=== PATIENT | male | born 1980 | race Caucasian/White ===

== ENCOUNTER → 2016-07-18 | Outpatient (CLI) | payer OTHER ==
[2016-07-18 10:55] LABS: ALT 52 U/L (21-72); AST 27 U/L (17-59); Alkaline Phosphatase 83 U/L (38-126); Anion Gap 12 mmol/L; Blood Urea Nitrogen 21 mg/dL (9-20); Calcium 9.7 mg/dL (8.4-10.2); Carbon Dioxide 27 mmol/L (22-30); Chloride 103 mmol/L (98-107); Cholesterol 220 mg/dL (<200); Glucose 208 mg/dL (74-99); HDL Cholesterol 46 mg/dL (40-60); Non-African American GFR(MDRD) >60 (>60 ml/min/1.73 sqM); Potassium 4.8 mmol/L (3.5-5.1); Sodium 142 mmol/L (137-145); Total Bilirubin 0.6 mg/dL (0.2-1.3); Total Protein 7.7 g/dL (6.3-8.2); Triglycerides 148 mg/dL (<150)
== END | disposition home or self-care (01) ==
LOC: LABWHC1 09:52
PROVIDERS: ATTEND Internal Medicine Endocrinology, Diabetes & Metabolism
DX: E11.65 Type 2 diabetes mellitus with hyperglycemia (principal)
CPT/HCPCS: 36415; 80053; 80061; 82043; 84443

== ENCOUNTER → 2016-10-21 | Outpatient (CLI) | payer OTHER ==
[2016-10-21 10:24] LABS: ALT 44 U/L (21-72); AST 20 U/L (17-59); Alkaline Phosphatase 82 U/L (38-126); Anion Gap 12 mmol/L; Blood Urea Nitrogen 16 mg/dL (9-20); Calcium 9.4 mg/dL (8.4-10.2); Carbon Dioxide 23 mmol/L (22-30); Chloride 107 mmol/L (98-107); Glucose 199 mg/dL (74-99); Non-African American GFR(MDRD) >60 (>60 ml/min/1.73 sqM); Potassium 4.5 mmol/L (3.5-5.1); Sodium 142 mmol/L (137-145); Total Bilirubin 0.4 mg/dL (0.2-1.3); Total Protein 7.2 g/dL (6.3-8.2)
== END | disposition home or self-care (01) ==
LOC: LABWHC1 09:45
PROVIDERS: ATTEND Internal Medicine Endocrinology, Diabetes & Metabolism
DX: E11.65 Type 2 diabetes mellitus with hyperglycemia (principal)
CPT/HCPCS: 36415; 80053; 84681

== ENCOUNTER → 2020-05-27 | Outpatient (CLI) | payer BC ==
[2020-05-27 10:55] LABS: ALT 23 U/L (4-49); AST 25 U/L (17-59); African American GFR (CKD) >90 (>60 ml/min/1.73 sqM); Albumin 4.3 g/dL (3.5-5.0); Albumin/Globulin Ratio 1.6; Alkaline Phosphatase 74 U/L (38-126); Anion Gap 6 mmol/L; Blood Urea Nitrogen 20 mg/dL (9-20); Calcium 9.4 mg/dL (8.4-10.2); Carbon Dioxide 31 mmol/L (22-30); Chloride 102 mmol/L (98-107); Cholesterol 207 mg/dL (<200); Globulin 2.7 g/dL; Glucose 194 mg/dL (74-99); HDL Cholesterol 50 mg/dL (40-60); LDL Cholesterol,Calculated 139 mg/dL (0-99); Non-African American GFR(CKD) >90 (>60 ml/min/1.73 sqM); Potassium 4.3 mmol/L (3.5-5.1); Sodium 139 mmol/L (137-145); Total Bilirubin 0.6 mg/dL (0.2-1.3); Triglycerides 88 mg/dL (<150)
[2020-05-27 21:38] LABS: Hemoglobin A1C 7.7 % (4.0-6.0)
[2020-05-28 05:37] LABS: Urine Creatinine 203.8 mg/dL
== END | disposition home or self-care (01) ==
LOC: LABWHC1 09:42
PROVIDERS: ATTEND Internal Medicine Endocrinology, Diabetes & Metabolism
DX: E10.65 Type 1 diabetes mellitus with hyperglycemia (principal)
CPT/HCPCS: 36415; 80053; 80061; 82043; 82570; 83036; 84443

== ENCOUNTER 2020-05-30 16:58 | Emergency (ER) | payer BC ==
[2020-05-30 17:12] VITALS: BP 159/108; PULSE 97; RESP 18; TEMP 98
[2020-05-30] MEDS ORDERED: DIPH,PERTUS(ACELL)TETVAC-LF 0.5 ML VIAL IM ONE (17:21)
[2020-05-30] MEDS ORDERED: LIDOCAINE 1% INJ 10MG/ML (20 ML MDV) SQ ONE (17:21)
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
[2020-05-30] MEDS ORDERED: BACITRACIN OINT 1 EACH PACKET TOPICAL ONE (17:42)
--- NOTE | 2020-05-30 18:08 | XR ---
RESULT: HISTORY: laceration, crush injury thumb TECHNIQUE: 3 views of the left thumb were obtained. COMPARISON: None. FINDINGS: There is no acute fracture or dislocation. The visualized joint spaces are preserved. No radiopaque f oreign body. IMPRESSION: No acute osseous abnormality.
== END 2020-05-30 17:52 | disposition home or self-care (01) ==
LOC: EC 16:58
DX: S61.112A Laceration without foreign body of left thumb with damage to nail, initial encounter (principal); Z23 Encounter for immunization; W22.8XXA Striking against or struck by other objects, initial encounter
CPT/HCPCS: 73140; 90715; 99283; 12002; 90471; J2001

== ENCOUNTER → 2021-07-22 | Outpatient (CLI) | payer BC ==
[2021-07-22 15:27] LABS: ALT 25 U/L (10-49); AST 21 U/L (14-35); African American GFR (CKD) 118.8 (60.0-200.0); Albumin 4.6 g/dL (3.8-4.9); Albumin/Globulin Ratio 2.11 (1.60-3.17); Alkaline Phosphatase 70 U/L (41-126); BUN/Creat Ratio 19.38 Ratio (12.00-20.00); Calcium 9.6 mg/dL (8.7-10.3); Carbon Dioxide 26.8 mmol/L (20.0-27.5); Chloride 106 mmol/L (96-109); Chol/HDL Ratio 4.12 Ratio; Globulin 2.2 g/dL (1.6-3.3); Glucose 133 mg/dL (70-110); LDL Cholesterol,Calculated 141.7 mg/dL (0.0-131.0); Non-African American GFR(CKD) 102.5 (60.0-200.0); Potassium 4.4 mmol/L (3.5-5.5); Sodium 143 mmol/L (135-145); Total Protein 6.8 g/dL (6.2-8.2); VLDL Calculation 13.52 mg/dL (5.00-40.00)
== END | disposition home or self-care (01) ==
LOC: LABWHC1 08:20
PROVIDERS: ATTEND Internal Medicine Endocrinology, Diabetes & Metabolism
DX: E10.65 Type 1 diabetes mellitus with hyperglycemia (principal)
CPT/HCPCS: 36415; 80053; 80061; 82043; 82570; 83036; 84443

== ENCOUNTER 2021-08-17 17:14 | Emergency (ER) | payer BC ==
[2021-08-17 19:27] VITALS: BP 138/87; PULSE 97; RESP 18; TEMP 97.8
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
--- NOTE | 2021-08-17 19:37 | XR ---
EXAMINATION TYPE: XR foot complete LT DATE OF EXAM: 08/17/2021 7:10 PM INDICATION: Patient age:Male; 41 years old; Reason for study: PAIN; COMPARISON: None TECHNIQUE: The left foot was examined in the AP, oblique, and lateral projections. FINDINGS: Osseous fragment off the dorsal aspect of the navicular bone. Additional osseous fragment s een between the first and second metatarsal bases as well as one on lateral view near the base of the fifth metatarsal which could just be overlapping osseous structures near the fifth metatarsal base. There is soft tissue swelling throughout the foot. IMPRESSION: Suspected acute fracture of the dorsal aspect of the navicular bone correlate with point tenderness. Additional suspected fracture between the first and second metatarsal bases and projecting near the f ifth metatarsal base which may just be overlapping osseous structures. Further evaluation with CT anjana t may be of benefit.
--- NOTE | 2021-08-17 20:10 | XR ---
EXAMINATION TYPE: XR shoulder complete LT DATE OF EXAM: 08/17/2021 7:10 PM INDICATION: Patient age:Male; 41 years old; Reason for study: PAIN; COMPARISON: None TECHNIQUE: The left shoulder was examined in AP, internally rotated and scapular Y projections. . FINDINGS: No evidence of acute osseous pathology, joint dislocation, or soft tissue swelling. The remaining por tions of the visualized chest are unremarkable. IMPRESSION: No acute osseous pathology.
--- NOTE | 2021-08-17 20:10 | XR ---
EXAMINATION TYPE: XR ankle complete LT DATE OF EXAM: 08/17/2021 7:10 PM INDICATION: Patient age:Male; 41 years old; Reason for study: PAIN; COMPARISON: Radiograph same day of the foot. TECHNIQUE: The right ankle is imaged in frontal lateral and oblique projections. FINDINGS: Or soft tissue swelling throughout the foot. Osseous fragment off the navicular bone is described on radiograph of the foot. IMPRESSION: 1. Osseous fragment off the navicular bone is described on radiograph of the foot suspicious for frac ture. 2. Subcutaneous swelling around the ankle likely secondary to underlying soft tissue injury.
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
== END 2021-08-17 22:33 | disposition home or self-care (01) ==
LOC: EC 17:14
DX: S92.252A Displaced fracture of navicular [scaphoid] of left foot, initial encounter for closed fracture (principal); M25.512 Pain in left shoulder; E11.9 Type 2 diabetes mellitus without complications; V28.4XXA Motorcycle driver injured in noncollision transport accident in traffic accident, initial encounter; Y92.410 Unspecified street and highway as the place of occurrence of the external cause
CPT/HCPCS: 99284

== ENCOUNTER → 2022-09-15 | Outpatient (CLI) | payer BC ==
[2022-09-15 11:40] LABS: ALT 28 U/L (10-49); AST 17 U/L (14-35); Albumin 4.8 d/dL (3.8-4.9); Albumin/Globulin Ratio 1.92 Ratio (1.60-3.17); Alkaline Phosphatase 81 U/L (41-126); Blood Urea Nitrogen 22.4 mg/dL (9.0-27.0); Calcium 9.9 mg/dL (8.7-10.3); Carbon Dioxide 27.1 mmol/L (21.6-31.8); Chloride 102 mmol/L (96-109); Chol/HDL Ratio 4.53 Ratio; Globulin 2.5 d/dL (1.6-3.3); Glucose 255 mg/dL (70-110); LDL Cholesterol,Calculated 152.2 mg/dL (0.0-131.0); Potassium 4.6 mmol/L (3.5-5.5); Sodium 140 mmol/L (135-145); Total Bilirubin 0.4 mg/dL (0.3-1.2); Total Protein 7.3 d/dL (6.2-8.2)
== END | disposition home or self-care (01) ==
LOC: LABWHC1 07:33
PROVIDERS: ATTEND Internal Medicine Endocrinology, Diabetes & Metabolism
DX: E10.65 Type 1 diabetes mellitus with hyperglycemia (principal)
CPT/HCPCS: 36415; 80053; 80061; 82043; 82570; 83036; 84443

== ENCOUNTER → 2023-04-25 | Outpatient (CLI) | payer BC ==
[2023-04-25 11:26] LABS: Blood Urea Nitrogen 22.8 mg/dL (9.0-27.0); Carbon Dioxide 28.1 mmol/L (21.6-31.8); Chloride 103 mmol/L (96-109); Chol/HDL Ratio 3.73 Ratio; Glucose 203 mg/dL (70-110); LDL Cholesterol,Calculated 138.8 mg/dL (0.0-131.0); Potassium 4.5 mmol/L (3.5-5.5); Sodium 140 mmol/L (135-145); VLDL Calculation 11.98 mg/dL (5.00-40.00)
[2023-04-25 11:27] LABS: ALT 31 U/L (10-49); AST 20 U/L (14-35); Albumin 4.6 g/dL (3.8-4.9); Alkaline Phosphatase 71 U/L (41-126); Calcium 9.8 mg/dL (8.7-10.3); Globulin 2.3 g/dL (1.6-3.3); Total Bilirubin 0.3 mg/dL (0.3-1.2); Total Protein 6.9 g/dL (6.2-8.2)
== END | disposition home or self-care (01) ==
LOC: LABWHC1 07:18
PROVIDERS: ATTEND Internal Medicine Endocrinology, Diabetes & Metabolism
DX: E10.65 Type 1 diabetes mellitus with hyperglycemia (principal)
CPT/HCPCS: 36415; 80053; 80061; 82043; 82570; 83036; 84443

== ENCOUNTER → 2023-07-13 | Outpatient (CLI) | payer BC ==
[2023-07-13 15:48] LABS: ALT 25 U/L (10-49); AST 20 U/L (14-35); Albumin 4.4 g/dL (3.8-4.9); Albumin/Globulin Ratio 1.91 Ratio (1.60-3.17); Alkaline Phosphatase 77 U/L (41-126); BUN/Creat Ratio 20.56 Ratio (12.00-20.00); Blood Urea Nitrogen 18.5 mg/dL (9.0-27.0); Calcium 9.6 mg/dL (8.7-10.3); Carbon Dioxide 24.4 mmol/L (21.6-31.8); Chloride 104 mmol/L (96-109); Chol/HDL Ratio 3.42 Ratio; Globulin 2.3 g/dL (1.6-3.3); Glucose 181 mg/dL (70-110); LDL Cholesterol,Calculated 118.3 mg/dL (0.0-131.0); Potassium 4.6 mmol/L (3.5-5.5); Sodium 142 mmol/L (135-145); Total Bilirubin 0.4 mg/dL (0.3-1.2); Total Protein 6.7 g/dL (6.2-8.2); VLDL Calculation 18.96 mg/dL (5.00-40.00)
== END | disposition home or self-care (01) ==
LOC: LABWHC1 07:46
PROVIDERS: ATTEND Internal Medicine Endocrinology, Diabetes & Metabolism
DX: E10.65 Type 1 diabetes mellitus with hyperglycemia (principal)
CPT/HCPCS: 36415; 80053; 80061; 82043; 82570; 83036; 84443

== ENCOUNTER → 2023-12-22 | Outpatient (CLI) | payer BC ==
[2023-12-22 14:10] LABS: ALT 25 U/L (10-49); AST 23 U/L (14-35); Albumin 4.5 g/dL (3.8-4.9); Albumin/Globulin Ratio 1.88 Ratio (1.60-3.17); Alkaline Phosphatase 71 U/L (41-126); BUN/Creat Ratio 21.56 Ratio (12.00-20.00); Blood Urea Nitrogen 19.4 mg/dL (9.0-27.0); Calcium 9.5 mg/dL (8.7-10.3); Carbon Dioxide 27.6 mmol/L (21.6-31.8); Chloride 105 mmol/L (96-109); Chol/HDL Ratio 3.83 Ratio; Globulin 2.4 g/dL (1.6-3.3); Glucose 114 mg/dL (70-110); LDL Cholesterol,Calculated 143.2 mg/dL (0.0-131.0); Potassium 4.3 mmol/L (3.5-5.5); Sodium 143 mmol/L (135-145); Total Bilirubin 0.6 mg/dL (0.3-1.2); Total Protein 6.9 g/dL (6.2-8.2); VLDL Calculation 11.18 mg/dL (5.00-40.00)
== END | disposition home or self-care (01) ==
LOC: LABWHC1 07:50
PROVIDERS: ATTEND Internal Medicine Endocrinology, Diabetes & Metabolism
DX: E10.65 Type 1 diabetes mellitus with hyperglycemia (principal)
CPT/HCPCS: 36415; 80053; 80061; 82043; 82570; 83036; 84443

== ENCOUNTER → 2024-05-14 | Outpatient (CLI) | payer BC ==
[2024-05-14 15:07] LABS: Basophils # (A) 0.02 X 10*3/uL (0.00-0.10); Basophils % (A) 0.3 %; Eosinophils % (A) 1.4 %; HCT 43.4 % (39.6-50.0); HGB 14.1 g/dL (13.0-17.0); Lymphocytes # (A) 2.04 X 10*3/uL (0.90-5.00); Lymphocytes % (A) 28.3 %; MCH 28.5 pg (27.0-32.0); MCHC 32.5 g/dL (32.0-37.0); MCV 87.7 FL (80.0-97.0); Mean Platelet Volume 9.6 FL (9.5-12.2); Monocytes # (A) 0.59 X 10*3/uL (0.20-1.00); Monocytes % (A) 8.2 %; NRBC Per 100 WBC 0 X 10*3/uL (0.00-0.01); Neutrophils # (A) 4.42 X 10*3/uL (1.80-7.70); Neutrophils % (A) 61.4 %; Platelet Count 316 X 10*3/uL (140-440); RBC 4.95 X 10*6/uL (4.40-5.60); RDW 12.7 % (11.5-14.5)
[2024-05-14 15:21] LABS: Chol/HDL Ratio 4.39 Ratio; VLDL Calculation 14.18 mg/dL (5.00-40.00)
[2024-05-14 15:22] LABS: ALT 27 U/L (10-49); AST 25 U/L (14-35); Albumin 4.5 g/dL (3.8-4.9); Albumin/Globulin Ratio 1.96 Ratio (1.60-3.17); Alkaline Phosphatase 73 U/L (41-126); BUN/Creat Ratio 19.44 Ratio (12.00-20.00); Blood Urea Nitrogen 17.5 mg/dL (9.0-27.0); Calcium 9.4 mg/dL (8.7-10.3); Carbon Dioxide 27.2 mmol/L (21.6-31.8); Chloride 104 mmol/L (96-109); Globulin 2.3 g/dL (1.6-3.3); Glucose 126 mg/dL (70-110); Potassium 4.4 mmol/L (3.5-5.5); Sodium 142 mmol/L (135-145); Total Bilirubin 0.5 mg/dL (0.3-1.2); Total Protein 6.8 g/dL (6.2-8.2)
== END | disposition home or self-care (01) ==
LOC: LABWHC1 08:31
PROVIDERS: ATTEND Family Medicine
DX: Z00.00 Encounter for general adult medical examination without abnormal findings (principal); E78.2 Mixed hyperlipidemia; E11.65 Type 2 diabetes mellitus with hyperglycemia; E66.09 Other obesity due to excess calories; G47.33 Obstructive sleep apnea (adult) (pediatric); M72.2 Plantar fascial fibromatosis; L74.513 Primary focal hyperhidrosis, soles; R53.83 Other fatigue; Z79.899 Other long term (current) drug therapy; Z68.41 Body mass index [BMI] 40.0-44.9, adult
CPT/HCPCS: 36415; 80053; 80061; 82040; 82306; 82607; 84270; 84403; 84443; 85025

== ENCOUNTER 2024-06-03 15:34 | Emergency (ER) | payer OTHER, BC ==
[2024-06-03 15:52] VITALS: TEMP 98.5
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
[2024-06-03] MEDS: KETOROLAC 15 MG/ML 1 ML VIAL IM STA (16:46)
[2024-06-03] MEDS: CYCLOBENZAPRINE 10 MG TAB PO STA (16:46)
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
[2024-06-03 17:42] VITALS: BP 144/84; PULSE 87; RESP 18
== END 2024-06-03 17:38 | disposition home or self-care (01) ==
LOC: EC 15:34
DX: S46.911A Strain of unspecified muscle, fascia and tendon at shoulder and upper arm level, right arm, initial encounter (principal); V89.2XXA Person injured in unspecified motor-vehicle accident, traffic, initial encounter; Y92.481 Parking lot as the place of occurrence of the external cause
CPT/HCPCS: 73030; 99284; 96372; J1885

== ENCOUNTER → 2024-06-05 | Outpatient (CLI) | payer OTHER, BC ==
--- NOTE | 2024-06-05 15:26 | XR ---
EXAMINATION TYPE: XR cervical spine comp DATE OF EXAM: 06/05/2024 2:55 PM COMPARISON: None CLINICAL INDICATION: Male, 44 years old with history of [id number], [id number] RT SHLD PAIN,CERVICALGIA; YCH, p ain TECHNIQUE: The cervical spine was imaged in frontal, lateral, odontoid and bilateral oblique. FINDINGS: The osseous structures show normal alignment without evidence of an acute fracture. There are osteoph ytes noted throughout the cervical spine on the anterior and lateral aspects of the vertebral bodies. The intervertebral disk spaces are narrowed at multiple levels. Pedicles are intact. Soft tissues a re within normal limits. The odontoid appears intact. IMPRESSION: 1. No fracture or dislocation. 2. Mild degenerative disc disease changes of the cervical spine. [facility], , 06/05/2024 3:24 PM
--- NOTE | 2024-06-05 15:27 | XR ---
EXAMINATION TYPE: XR shoulder complete RT DATE OF EXAM: 06/05/2024 2:55 PM COMPARISON: None CLINICAL INDICATION: Male, 44 years old with history of [id number], [id number] RT SHLD PAIN,CERVICALGIA; YCGretta, danii davis TECHNIQUE: XR shoulder complete RT; examined in AP, internally rotated and scapular Y projections. FINDINGS: No evidence of acute osseous pathology, joint dislocation, or soft tissue swelling. The remaining po rtions of the visualized chest are unremarkable. IMPRESSION: No acute osseous pathology. [facility], , 06/05/2024 3:25 PM
== END | disposition home or self-care (01) ==
LOC: RADXRYALE 14:30
PROVIDERS: ATTEND Physician Assistant
DX: M25.511 Pain in right shoulder (principal); M50.30 Other cervical disc degeneration, unspecified cervical region
CPT/HCPCS: 72050